=== PATIENT | female | born 2000 | race Two or more races ===

== ENCOUNTER 2022-07-10 20:41 | Emergency (ER) | payer MEDICAID, OTHER ==
[~2022-07-10] VITALS: Ht 147.3 cm; Wt 45.5 kg
[2022-07-11] MEDS ORDERED: methylPREDNISolone SOD SUCC 125 MG/2 ML VL IM ONE (01:00)
[2022-07-11] MEDS ORDERED: PRED20TA2 PO (01:04)
[2022-07-11 02:17] VITALS: BP 96/63
== END 2022-07-11 02:20 | disposition home or self-care (01) ==
LOC: ER 20:44
DX: T78.40XA Allergy, unspecified, initial encounter (principal); F17.210 Nicotine dependence, cigarettes, uncomplicated; Z79.899 Other long term (current) drug therapy; Y92.89 Other specified places as the place of occurrence of the external cause
CPT/HCPCS: 96372; 99283; J2930